=== PATIENT | male | born 1965 | race Caucasian/White ===

== ENCOUNTER 2018-07-21 05:41 | Day surgery (SDC) | payer OTHER ==
[2018-07-21] MEDS ORDERED: LIDOCAINE 2% (SDV) 5 ML INJ (07:50)
[2018-07-21] MEDS ORDERED: PROPOFOL 60 ML (07:50)
== END 2018-07-21 11:20 | disposition home or self-care (01) ==
LOC: GIL 05:41
DX: Z12.11 Encounter for screening for malignant neoplasm of colon (principal); K29.60 Other gastritis without bleeding; K20.8 Other esophagitis; K64.4 Residual hemorrhoidal skin tags; K57.30 Diverticulosis of large intestine without perforation or abscess without bleeding
CPT/HCPCS: 43239; 88305; 88312